=== PATIENT | female | born 1985 | race Caucasian/White ===

== ENCOUNTER 2024-01-11 17:59 | Emergency (ER) | payer BC, SELFPAY ==
[2024-01-11 18:20] VITALS: BP 149/109; PULSE 78; RESP 19; TEMP 36.8; O2SAT 97; BMI 32.9
--- NOTE | 2024-01-11 18:42 | ED_ITS ---
Discharge Plan Disposition Patient Disposition: Home, Self-Care Condition: Good Prescriptions Prescriptions: New prednisone 20 mg tablet 20 mg PO BID Qty: 10 0RF No Action azithromycin 500 mg tablet 500 mg PO DAILY Patient Comments: TAKE 1 TABLET BY MOUTH EVERY DAY DIRECTED FOR 5 DAYS Zepbound 7.5 mg/0.5 mL pen injector 7.5 mg SQ WEEKLY Referrals Follow up/Referrals: Jason Marley [Primary Care Provider] - See instructions Activity Restrictions/Add. Instructions Additional Instructions/Restrictions: Change toothbrush and toothpaste 24-48 hours after starting antibiotics Tylenol or Motrin as needed for fever or pain Encourage fluids, water, Gatorade, Powerade, try cold fluids, popsicles, ice cream will make it feel better You are contagious for 24 hours. Avoid kissing anyone, no eating or drinking after anyone. You are contagious. Follow-up the ER for new or worsening symptoms or no noticeable improvement over the next 24-48 hours. Follow-up with PCP this week. Clinical Impressions Clinical Impression: Strep sore throat, Fever blister Instructions Patient Instructions: DI for Cold Sores, Herpes (Alternative Therapy) Print Language Print Language: [place] Discharge ED Provider: Wanda ([facility])Chata [facility] [place] HPI General Stated complaint: Blisters on face and inside of mouth Mode of Arrival: Ambulatory Source of Information: Patient Limitations: No Limitations Time Seen by Provider: 01/11/24 18:42 Description of Symptoms (Recalled from Triage Doc. by RN): PATIENT C/O COUGH, CHEST CONGESTION, FEVER, AND NIGHT SWEATS THAT STARTED SATURDAY AND BLISTERS TO MOUTH, FACE, GUMS AND TONGUE THAT DEVELOPED SATURDAY HEENT Symptoms (Recalled from RN notes): Yes Resp Symptoms (Recalled from RN notes): Yes Skin Symptoms (Recalled from RN notes): Yes MS Symptoms (Recalled from RN notes): No Functional Status (Recalled from RN notes): WNL History of Present Illness Provider Complaint: 38 YR OLD FEMALE PRESENTS FOR C/O COUGH, CHEST CONGESTION, FEVER, AND NIGHT SWEATS THAT STARTED SATURDAY AND BLISTERS TO MOUTH, FACE, GUMS AND TONGUE THAT DEVELOPED SATURDAY. PT STATES SHE IS BEING TREATED WITH ZPAK FOR A POSTIVE STREP. Related Data Home Medications ?Medication ?Instructions ?Recorded ?Confirmed azithromycin 500 mg tablet 500 mg PO DAILY 01/11/24 01/11/24 tirzepatide (weight loss) 7.5 7.5 mg SQ WEEKLY 01/11/24 01/11/24 mg/0.5 mL subcutaneous pen injector (Zepbound) Previous Rx's ?Medication ?Instructions ?Recorded prednisone 20 mg tablet 20 mg PO BID #10 tabs 01/11/24 Allergies Allergy/AdvReac Type Severity Reaction Status Date / Time acetaminophen [From Percocet] Allergy Verified 01/11/24 18:31 codeine Allergy Verified 01/11/24 18:31 oxycodone [From Percocet] Allergy Verified 01/11/24 18:31 Worker's Comp Is this a Worker's Comp case?: No [facility] Disclaimer: The information contained in this section may have been updated after the patient was seen, as this information can be updated by other users. Social History , [employer]) Smoking Status: Unknown if ever smoked alcohol intake: never current occupational status: employed Travel in the last 8 weeks: None ROS Obtained: Yes All systems reviewed & no additional complaints except as documented Constitutional Constitutional: Reports system reviewed and no additional complaints, except as documented, Reports as per HPI and Reports fever(s) Eyes Eyes: Reports system reviewed and no additional complaints, except as documented ENT Ears, Nose, Mouth, and Throat: Reports system reviewed and no additional complaints, except as documented, Reports lip swelling, Reports mouth lesions (ON LIP AND MOUTH BLISTERS), Reports nasal congestion, Reports nasal discharge and Reports sore throat Respiratory Respiratory: Reports system reviewed and no additional complaints, except as documented Gastrointestinal Gastrointestingal: Reports system reviewed and no additional complaints, except as documented Integumentary/Breasts Skin/Breast: Reports system reviewed and no additional complaints, except as documented and Reports as per HPI Neurologic Neurologic: Reports system reviewed and no additional complaints, except as documented Endocrine Endocrine: Reports system reviewed and no additional complaints, except as documented Hematologic/Lymphatic Henatologic/Lymphatic: Reports system reviewed and no additional complaints, except as documented Allergic/Immunologic Allergic/Immunologic: Reports system reviewed and no additional complaints, except as documented and Reports lip swelling Physical Exam General General appearance: alert and in no apparent distress Eye Eye exam: Present normal appearance and PERRL ENT ENT exam: Present mucous membranes moist and TM's normal bilaterally Expanded ENT Exam Nose/Mouth Image: 2 1. FEVER BLISTER 2. RED AREA Open Mouth Image: 2 1. REDNESS 2. REDNESS 3. REDNESS 4. RED 5. RED 6. REDNESS Respiratory Respiratory exam: Present normal lung sounds bilaterally Cardiovascular Cardiovascular exam: Present regular rate and normal rhythm Neurological Exam Neurological exam: Present alert and oriented X3 Skin Skin exam: Present warm Lymphatic Lymphatic Findings: no adenopathy Medical Decision Making Medical Records Medical records reviewed: Yes I reviewed the patient's medical records. Jorge Luis Inquiry Pt receiving controlled substance: No Jorge Luis was queried for this patient: No Vital Signs: 01/11/24 18:20 Temperature 98.3 F Temperature Source Oral Pulse Rate [Left Brachial] 78 Respiratory Rate 19 Blood Pressure [Left Arm] 149/109 H Blood Pressure Mean [Left Arm] 122 Blood Pressure Source [Left Arm] Automatic Cuff Blood Pressure Position [Left Arm] Sitting 02 Sat by Pulse Oximetry 97 Oxygen Delivery Method Room Air
[2024-01-11 18:59] VITALS: BP 149/109; PULSE 78; RESP 19; TEMP 36.8; O2SAT 97
== END 2024-01-11 19:10 | disposition home or self-care (01) ==
PROVIDERS: Emergency Provider Nurse Practitioner Family; PCP Family Medicine
DX: J02.0 Streptococcal pharyngitis (principal); B00.1 Herpesviral vesicular dermatitis; R05.9 Cough, unspecified; R50.9 Fever, unspecified
CPT/HCPCS: 99204; 99212; G0463